=== PATIENT | male | born 1935 | race Caucasian/White ===

== ENCOUNTER 2024-06-27 16:56 | Observation (INO) ==
[2024-06-27 17:43] LABS: Basophils # (auto) 0.07 K/uL (0.00-0.20); Basophils % (auto) 0.5 %; Eosinophils # (auto) 0.02 K/uL (0.00-0.50); Eosinophils % (auto) 0.1 %; Hematocrit (blood only) 37.1 % (42.0-52.0); Immature Granulocytes # (auto) 0.04 K/uL (0.01-0.20); Immature Granulocytes % (auto) 0.3 %; Lymphocytes # (auto) 1.92 K/uL (1.20-3.40); Lymphocytes % (auto) 13.1 %; Mean Corpuscular Hemoglobin 31.1 pg (25.0-34.0); Mean Corpuscular Volume 88.8 fL (80.0-100.0); Mean Platelet Volume 9.3 fL (9.4-12.4); Monocytes # (auto) 1.43 K/uL (0.11-0.59); Monocytes % (auto) 9.8 %; Neutrophils # (auto) 11.17 K/uL (1.40-6.50); Neutrophils % (auto) 76.2 %; Platelet Count 211 K/uL (130-400); RDW Coefficient of Variation 13.4 % (11.5-14.5); RDW Standard Deviation 43.8 fL (36.4-46.3); Red Blood Count 4.18 M/uL (4.70-6.10); White Blood Count 14.65 K/ul (4.8-10.8)
[2024-06-27 18:00] LABS: Alanine Aminotransferase 8 U/L (7-52); Albumin Globulin Ratio 1.4 (0.9-2); Albumin Level 3.8 gm/dl (3.4-5.0); Alkaline Phosphatase 79 U/L (34-104); Anion Gap 6 (3-11); Aspartate Aminotransferase 14 U/L (13-39); BUN Creatinine Ratio 28.6 (10-20); Bilirubin,Total 0.6 mg/dl (0.2-1.0); Blood Urea Nitrogen 36 mg/dl (6-23); Calcium 9.3 mg/dl (8.6-10.3); Carbon Dioxide 26 mmol/L (21-32); Chloride 103 mmol/L (98-107); Globulin 2.7 gm/dl (2.5-4.0); Glucose 249 mg/dl (70-99(Fasting)); Lipase 7 U/L (11-82); Potassium 4.6 mmol/L (3.5-5.1); Sodium 135 mmol/L (136-145); Total Protein 6.5 gm/dl (6.0-8.3)
[2024-06-27 18:04] LABS: Appearance Urine Cloudy (Clear); Bilirubin Urine 1+ (Negative); Blood Urine 3+ (Negative); Color Urine Red; Glucose Urine UA Negative (Negative); Ketones Urine Negative (Negative); Leukocyte Esterase Urine 3+ (Negative); Nitrite Urine Positive (Negative); Protein Urine 3+ (Negative); Urobilinogen Urine Negative (Negative)
[2024-06-27 18:08] LABS: Bacteria Urine 2+ (None Seen); Epithelial Cell Urine 0-2 /hpf (0-2); RBC Urine >20 /hpf (0-2); WBC Urine >50 /hpf (0-5)
--- NOTE | 2024-06-27 18:44 | Emergency Department Note ---
Impression & Plan Acute hemorrhagic cystitis ED Provider Note Provider: Zane Caldwell MD CHIEF COMPLAINT: Urinary pain frequency and blood HISTORY OF PRESENT ILLNESS: Patient is a 88-year-old gentleman past medical history including BPH, diabetes, CVA, GERD, and arthritis presenting here referred from the outpatient setting for blood in urine frequency concern for urinary tract infection. Patient started yesterday afternoon with some blood in the urine worsened overnight. No clots reported by the patient. Urinary frequency and pain with urination. No fevers. Little bit of suprapubic tenderness. No significant flank pain or nausea or vomiting. Did not sleep well as he is been up going to the bathroom frequently. Does not have the best of like to begin with. Went to the office today had urine sample and blood work obtained concerning possible urine infection. Did take 1 dose of Keflex at [address] completed and called back to come to the ER as there was concerns on the CT. Patient has yearly followed with urology and is scheduled to see them next month. No history of urinary tract infections reported. No falls or trauma reported. PAST MEDICAL HISTORY: As noted above MEDICATIONS: Reviewed home medications includes 81 mg aspirin SOCIAL HISTORY: , lives at home PHYSICAL EXAM: GENERAL: alert and oriented in no acute distress on stretcher, at bedside Head: normocephalic and atraumatic, hearing aids in place EYES: No injection, discharge or icterus. NECK: Trachea midline. ENT: Mucous membranes pink and moist. LUNGS: Airway patent. No retractions or tachypnea HEART: Regular rate and rhythm. No chest wall tenderness ABDOMEN: Soft a slight suprapubic tenderness. No guarding. No peritonitis. SKIN: Acyanotic, warm, dry, without rashes EXTREMITIES: Without swelling, tenderness or deformity NEUROLOGICAL: No focal deficits. No aphasia. No facial droop or slurred speech. Patient's laboratory studies and imaging in the outpatient setting reviewed. Differential includes Testicular torsion, mass, infection, hernia, hydrocele, epididymitis, STI, trauma, intra-abdominal process, as well as other pathologies. IMPRESSION/MEDICAL DECISION MAKING: No significant diffuse abdominal tenderness localized to suprapubic area. CT from the outpatient setting reviewed. Evidence of some emphysematous cystitis but no obstructing stone. Blood work here with slight leukocytosis but I do not believe he is septic. Does have some risk factors with his age and diabetes. No history of UTI in the past. Took 1 dose of Keflex just a little bit ago. Does not seem obstructed or having urinary retention. Blood likely from irritation from the infection. Is on low-dose aspirin but no other blood thinners. No findings concerning for significant anemia at this point. Given a dose of cefepime here for broader antimicrobial coverage. Discussed with patient and at length findings. Discussed how he was doing at home and given that he is not sleeping well and having some difficulty getting around with his urinary infection of the blood in the urine and shared decision making he elected for observation overnight to allow for improvement and assistance. DIAGNOSIS: Hemorrhagic cystitis DISPOSITION: Hospitalist will evaluate Patient was agreeable with this plan. Past Med/Surg History Problem List Acute hemorrhagic cystitis (Acute) PVC (premature ventricular contraction) Hyponatremia Macular degeneration BPH (benign prostatic hyperplasia) Diabetes mellitus Elevated PSA Hypertension Nodular prostate with urinary obstruction Hyperlipidemia H/O: CVA (cerebrovascular accident) (2003) Bradycardia Right bundle branch block Bilateral carotid artery disease Osteoarthritis GERD (gastroesophageal reflux disease) Arteriosclerotic heart disease (ASHD) Venous insufficiency of leg Medical History Kidney stone Surgical History H/O endarterectomy (~2006) R S/P cataract surgery 02/2020 Family History Mother Pancreatic cancer Diabetes Hypertension Father Diabetes Coronary heart disease Hypertension Myocardial infarction Grandmother (Maternal) Breast cancer Grandfather (Paternal) Myocardial infarction Denies family history of Ovarian cancer Prostate cancer Social History Smoking Status: Former smoker Tobacco Type: Cigarettes and Smokeless Tobacco (Dip or Chew) Age Started Using Tobacco: 13; Age Quit Using Tobacco: 29; packs per day: 0.25; Cigarettes Per Day: Used to smoke and chew tobacco [id number]; Second Hand Exposure: No; Do You Dip or Chew Tobacco: No; Hx Alcohol Use: No Hx Substance Use: No Preferred Language: Peruvian Communication Ability: Effective Visual Impairment: Partially Limited Hearing Ability: Use of Hearing Aid Palliative Care Nurse Practitioner Required: No Beliefs That Will Affect Care: None marital status: Current Living Situation: Spouse Current Living Situation Comment: [facility]on rueda (Feb 2022) current occupational status: retired current occupation: [employer] How many Children do You have: 1 How many Children do You have Comment: daughter lives in [place] Feels Safe at Home: Yes Safety Concerns: Feels Safe At This Time Diet: regular Diet Comment: regular caffeine: Yes during the past year weight has: remained stable Dental Care, Regularly: No Physical Activity Frequency: Other Physical Activity Frequency Comment: walking; steps at gym at home; limited d/t knee pain Seatbelt Use: always Sunscreen Use: No Assistive Devices: Cane, Denture - Upper, Denture - Lower, Glasses and Hearing Aid - Bilateral Allergies Allergies Allergy/AdvReac Type Severity Reaction Status Date / Time No Known Drug Allergies Allergy Verified 06/27/24 10:47 benzonatate AdvReac Unknown Dizziness Unverified 06/27/24 10:47 [From Ambrosio Claros] Home Meds Home Medications Medication Instructions Recorded Confirmed aspirin 81 mg tablet,delayed 81 mg PO QAM 01/16/19 06/27/24 release (Dejan Low Dose Aspirin) cholecalciferol (vitamin D3) 50 2,000 unit PO QAM 01/16/19 06/27/24 mcg (2,000 unit) tablet (Vitamin D3) glucosamine sulf dipot 1 cap PO BIDM 01/16/19 06/27/24 chlr,msm,chond 550 mg-C 30 mg-sourav 1 mg capsule (Glucosamine Chondroitin) psyllium husk 3.4 gram/5.4 gram 2 tbsp PO QAM 01/16/19 06/27/24 oral powder (Metamucil) acetaminophen 500 mg tablet 1,000 mg PO ONCE PRN pain or fever 04/25/20 06/27/24 (Tylenol Extra Strength) magnesium 250 mg tablet 250 mg PO BID 04/25/20 06/27/24 verapamil 240 mg tablet,extended 240 mg PO HS 01/23/22 06/27/24 release vitamins A,C,U-kjnw-syates 4,296 1 cap PO BID 05/12/22 06/27/24 mcg-226 mg-90 mg capsule (PreserVision AREDS) Previous Rx's Medication Instructions Recorded finasteride 5 mg tablet 5 mg PO QAM #90 tabs 03/14/24 pravastatin 40 mg tablet 40 mg PO HS #90 tabs 04/04/24 torsemide 10 mg tablet 5 mg (1/2 x 10 mg) PO DAILY #30 04/06/24 tabs losartan 100 mg tablet 100 mg PO QAM #90 tabs 05/08/24 cephalexin 500 mg capsule 500 mg PO BID 7 days #14 caps 06/27/24 Results & Data (ED) Vital Signs Vital Signs - 24 hr 06/27/24 17:16 06/27/24 18:28 06/27/24 18:29 Temperature 36.6 C Temperature Source Temporal Artery Scan Pulse Rate 88 83 Pulse Rate [Apical] 82 Respiratory Rate 18 20 Respiratory Effort / Characteristics Non-Labored Spontaneous Non-Labored Spontaneous Respiratory Depth Normal Normal Respiratory Pattern Regular Blood Pressure 151/77 H Blood Pressure [Left Arm] 150/88 H Blood Pressure Mean 101 Blood Pressure Mean [Left Arm] 108 Blood Pressure Position Sitting Blood Pressure Position [Left Arm] Lying Pulse Oximetry 92 96 Oxygen Delivery Method Room Air Room Air Sepsis Recent Fever Within 48 Hours No Sepsis New/Unexplained Change in Mental Status N/A Sepsis Action Taken by Nursing No Action Required 06/27/24 19:00 06/27/24 19:06 Temperature Temperature Source Pulse Rate 82 Pulse Rate [Apical] Respiratory Rate 14 Respiratory Effort / Characteristics Respiratory Depth Respiratory Pattern Blood Pressure 142/61 H Blood Pressure [Left Arm] Blood Pressure Mean 80 Blood Pressure Mean [Left Arm] Blood Pressure Position Blood Pressure Position [Left Arm] Pulse Oximetry Oxygen Delivery Method Sepsis Recent Fever Within 48 Hours Sepsis New/Unexplained Change in Mental Status Sepsis Action Taken by Nursing Laboratory Data 06/27/24 17:21 06/27/24 17:21 Lab Results 06/27/24 Range/Units 17:21 WBC 14.65 H (4.8-10.8) K/ul RBC 4.18 L (4.70-6.10) M/uL Hgb 13.0 L (14.0-18.0) g/dl Hct 37.1 L (42.0-52.0) % MCV 88.8 (80.0-100.0) fL MCH 31.1 (25.0-34.0) pg MCHC 35.0 (32.0-36.0) g/dL RDW Std Deviation 43.8 (36.4-46.3) fL RDW Coeff of Jan 13.4 (11.5-14.5) % Plt Count 211 (130-400) K/uL MPV 9.3 L (9.4-12.4) fL Immature Gran % (Auto) 0.3 % Neut % (Auto) 76.2 % Lymph % (Auto) 13.1 % [place] % (Auto) 9.8 % Eos % (Auto) 0.1 % Baso % (Auto) 0.5 % Neut # (Auto) 11.17 H (1.40-6.50) K/uL Lymph # (Auto) 1.92 (1.20-3.40) K/uL [place] # (Auto) 1.43 H (0.11-0.59) K/uL Eos # (Auto) 0.02 (0.00-0.50) K/uL Baso # (Auto) 0.07 (0.00-0.20) K/uL Immature Gran # (Auto) 0.04 (0.01-0.20) K/uL Sodium 135 L (136-145) mmol/L Potassium 4.6 (3.5-5.1) mmol/L Chloride 103 (98-107) mmol/L Carbon Dioxide 26 (21-32) mmol/L Anion Gap 6 (3-11) BUN 36 H (6-23) mg/dl Creatinine 1.26 (0.6-1.4) mg/dl Est Cr Clr Drug Dosing Not Reportable eGFR 54.52 BUN/Creatinine Ratio 28.6 H (10-20) Glucose 249 H (70-99(Fasting)) mg/dl Calcium 9.3 (8.6-10.3) mg/dl Total Bilirubin 0.6 (0.2-1.0) mg/dl AST 14 (13-39) U/L ALT 8 (7-52) U/L Alkaline Phosphatase 79 (34-104) U/L Total Protein 6.5 (6.0-8.3) gm/dl Albumin 3.8 (3.4-5.0) gm/dl Globulin 2.7 (2.5-4.0) gm/dl Albumin/Globulin Ratio 1.4 (0.9-2) Lipase 7 L (11-82) U/L Administered Medications Sodium Chloride (Nss) 1,000 mls @ 80 mls/hr IV .[id number] TODD Stop: 06/28/24 09:03 Last Admin: 06/27/24 21:36 Dose: 80 mls/hr Documented By: HILDA Insulin Aspart (Insulin Aspart Per Unit Charge) 0 units SC ACHS TODD Stop: 07/27/24 20:59 Last Admin: 06/27/24 21:36 Dose: 4 units Documented By: HILDA Co-signed By: ALLAN Pravastatin Sodium (Pravastatin Sod 40 Mg Tab) 40 mg PO HS [facility] Stop: 07/27/24 20:59 Last Admin: 06/27/24 23:09 Dose: 40 mg Documented By: HILDA Verapamil HCl (Verapamil Hcl 240 Mg Tabcr) 240 mg PO HS [facility] Stop: 07/27/24 20:59 Last Admin: 06/27/24 23:08 Dose: 240 mg Documented By: HILDA Discontinued Medications Cefepime HCl (Maxipime 2000mg) 2,000 mg in 20 mls @ 5 mls/min IV NOW STA; Protocol Stop: 06/27/24 18:42 Last Admin: 06/27/24 18:52 Dose: 5 mls/min Documented By: Discharge Plan Visit Data Chief Complaint: Abnormal Labs/Diagnostic Testing Stated Complaint: ABN TEST RESULTS DOC SENT THEM BACK HERE ED Provider: Zane Caldwell Discharge Problem: Acute hemorrhagic cystitis Patient Disposition: Admitted As Inpatient Discharge Instructions Interventions: ED Discharge Assessment Last Done: 06/27/24 20:04
[2024-06-27] MEDS: CEFEPIME 2000MG 2,000 MG/20 ML SYR IV STA (18:52)
--- NOTE | 2024-06-27 19:28 | History & Physical Report ---
Date of Service June 27, 2024 Assessment & Plan (1) Acute hemorrhagic cystitis: Plan: 88yo male presenting with hematuria, dysuria, increased urinary frequency and urgency x 1 day. Patient is afebrile, HD stable. Workup thus far suggestive of emphesematous UTI with acute hemorrhagic cystitis. Patient does not frequently get UTIs. He reports no difficulty emptying his bladder. -observation to medical -follow urine culture -monitor strict intake/output -bladder scan with straight cath as needed -Ceftriaxone 2gm IV daily -Tylenol PRN pain or fever (2) Diabetes mellitus: Plan: Patient was recently taken off his Metformin due to improvement in his blood sugars. Elevated today at 249 likely in part due to underlying infection. -ISS, goal blood sugar 110 - 140 (3) BPH (benign prostatic hyperplasia): Plan: Chronic. Patient reports minimal urinary complaints at baseline. CT imaging as above suggestive of chronic FLORENCE -Monitor I/Os -Bladder scan and straight cath as needed -Continue Finasteride (4) Hypertension: Plan: Blood pressure elevated today -Continue Losartan 100mg po qAM -Continue Verapamil 240mg po qHS -Holding Torsemide for now (5) Hyperlipidemia: Plan: Chronic. Stable -Continue Pravastatin Admission and Anticipated Discharge Date Admission Date: F/E/N - NSS at 80mL/hr x 1L, electrolytes WNL, Regular diet as tolerated Ppx - SCDs to bilateral LE Code - DNR/DNI per discussion with patient Dispo - Observation to medical History of Present Illness Chief Complaint: Hematuria Primary Care Provider: Sharyn Cintron DO Jim Jones is a pleasant male with history of diabetes, hypertension, hyperlipidemia and BPH presenting with 1 day of hematuria as well as dysuria increased urinary frequency and urgency. Symptoms began yesterday afternoon. Patient noted a considerable amount of blood in the urine. He denies fever, chills, pain in the suprapubic area, back or flanks. He denies nausea, vomiting, chest pain, cough, shortness of breath. No additional complaints at this time. Patient was seen by his PCP this morning for these complaints. A UA was unable to be performed due to the presence of blood. Patient was prescribed Keflex 500 mg p.o. twice daily. A CT of the abdomen performed which revealed prostamegaly with evidence of chronic bladder outlet obstruction as well as emphysematous cystitis with air and layering debris within the urinary bladder volume. There was no renal or ureteral calculi, hydronephrosis or upper urothelial lesions. In the ER patient afebrile, mildly hypertensive otherwise stable. No complaints ER Course: Cefepime Allergies Allergy/AdvReac Type Severity Reaction Status Date / Time No Known Drug Allergies Allergy Verified 06/27/24 10:47 benzonatate AdvReac Unknown Dizziness Unverified 06/27/24 10:47 [From Ambrosio Claros] Home Medications Medication Instructions Recorded Confirmed Type aspirin 81 mg tablet,delayed 81 mg PO QAM 01/16/19 06/27/24 History release (Dejan Low Dose Aspirin) cholecalciferol (vitamin D3) 50 2,000 unit PO QAM 01/16/19 06/27/24 History mcg (2,000 unit) tablet (Vitamin D3) glucosamine sulf dipot 1 cap PO BIDM 01/16/19 06/27/24 History chlr,msm,chond 550 mg-C 30 mg-sourav 1 mg capsule (Glucosamine Chondroitin) psyllium husk 3.4 gram/5.4 gram 2 tbsp PO QAM 01/16/19 06/27/24 History oral powder (Metamucil) acetaminophen 500 mg tablet 1,000 mg PO ONCE PRN pain or fever 04/25/20 06/27/24 History (Tylenol Extra Strength) magnesium 250 mg tablet 250 mg PO BID 04/25/20 06/27/24 History verapamil 240 mg tablet,extended 240 mg PO HS 01/23/22 06/27/24 History release vitamins A,C,Q-krvh-ywtbhd 4,296 1 cap PO BID 05/12/22 06/27/24 History mcg-226 mg-90 mg capsule (PreserVision AREDS) finasteride 5 mg tablet 5 mg PO QAM #90 tabs 03/14/24 06/27/24 Rx pravastatin 40 mg tablet 40 mg PO HS #90 tabs 04/04/24 06/27/24 Rx torsemide 10 mg tablet 5 mg (1/2 x 10 mg) PO DAILY #30 04/06/24 06/27/24 Rx tabs losartan 100 mg tablet 100 mg PO QAM #90 tabs 05/08/24 06/27/24 Rx cephalexin 500 mg capsule 500 mg PO BID 7 days #14 caps 06/27/24 06/27/24 Rx Past Med/Surg History Problem List Acute hemorrhagic cystitis (Acute) PVC (premature ventricular contraction) Hyponatremia Macular degeneration BPH (benign prostatic hyperplasia) Diabetes mellitus Elevated PSA Hypertension Nodular prostate with urinary obstruction Hyperlipidemia H/O: CVA (cerebrovascular accident) (2003) Bradycardia Right bundle branch block Bilateral carotid artery disease Osteoarthritis GERD (gastroesophageal reflux disease) Arteriosclerotic heart disease (ASHD) Venous insufficiency of leg Medical History Kidney stone Surgical History H/O endarterectomy (~2006) R S/P cataract surgery 02/2020 Family History Mother Pancreatic cancer Diabetes Hypertension Father Diabetes Coronary heart disease Hypertension Myocardial infarction Grandmother (Maternal) Breast cancer Grandfather (Paternal) Myocardial infarction Denies family history of Ovarian cancer Prostate cancer Social History Smoking Status: Former smoker Tobacco Type: Cigarettes and Smokeless Tobacco (Dip or Chew) Age Started Using Tobacco: 13; Age Quit Using Tobacco: 29; packs per day: 0.25; Cigarettes Per Day: Used to smoke and chew tobacco [id number]; Second Hand Exposure: No; Do You Dip or Chew Tobacco: No; Hx Alcohol Use: No Hx Substance Use: No Preferred Language: Armenian Communication Ability: Effective Visual Impairment: Partially Limited Hearing Ability: Use of Hearing Aid 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 Beliefs That Will Affect Care: None marital status: Current Living Situation: Spouse Current Living Situation Comment: baron rueda (Feb 2022) current occupational status: retired current occupation: [employer] How many Children do You have: 1 How many Children do You have Comment: daughter lives in [place] Feels Safe at Home: Yes Safety Concerns: Feels Safe At This Time Diet: regular Diet Comment: regular caffeine: Yes during the past year weight has: remained stable Dental Care, Regularly: No Physical Activity Frequency: Other Physical Activity Frequency Comment: walking; steps at gym at home; limited d/t knee pain Seatbelt Use: always Sunscreen Use: No Assistive Devices: Cane, Denture - Upper, Denture - Lower, Glasses and Hearing Aid - Bilateral Review of Systems Review of Systems: All systems reviewed & are unremarkable except as noted in HPI & below Physical Exam Physical Exam: General: patient resting comfortably, NAD, non-toxic in appearance, AA&O x 4 Skin: warm, dry, intact, no rashes or lesions HEENT: NC/AT, PERRL, EOMI, anicteric sclera, conjunctiva without injection, external ear normal to inspection and nontender, nares patent, moist mucus membranes, dentition intact, no oropharyngeal lesions, neck supple, trachea midline, no LAD, no thyromegaly, no JVD Heart: +S1/S2, regular, no m/r/g Lungs: equal air entry bilaterally, no rales/rhonchi/wheezes Abd: +BS, soft, NT/ND, no masses/organomegaly/ascites Ext: warm, 2+ pulses in UE/LE bilaterally, no clubbing/cyanosis or edema Neuro: nonfocal, patient AA&O x 4, speech intact, no facial droop, moving all extremities on command with equal strength 5/5 Results & Data Results & Data Vital Signs (Past 12 Hours) Vital Signs Temp Pulse Pulse Resp BP BP Pulse Ox 06/27/24 18:29 83 06/27/24 18:28 82 20 150/88 H 96 06/27/24 17:16 36.6 C 88 18 151/77 H 92 O2 Del Method 06/27/24 18:29 06/27/24 18:28 Room Air 06/27/24 17:16 Room Air Laboratory Results Laboratory Results WBC 14.65 K/ul (4.8-10.8) H 06/27/24 17:21 RBC 4.18 M/uL (4.70-6.10) L 06/27/24 17:21 Hgb 13.0 g/dl (14.0-18.0) L 06/27/24 17:21 Hct 37.1 % (42.0-52.0) L 06/27/24 17:21 MCV 88.8 fL (80.0-100.0) 06/27/24 17:21 MCH 31.1 pg (25.0-34.0) 06/27/24 17:21 MCHC 35.0 g/dL (32.0-36.0) 06/27/24 17:21 RDW Std Deviation 43.8 fL (36.4-46.3) 06/27/24 17: RDW Coeff of Jan 13.4 % (11.5-14.5) 06/27/24 17:21 Plt Count 211 K/uL (130-400) 06/27/24 17:21 MPV 9.3 fL (9.4-12.4) L 06/27/24 17:21 Immature Gran % (Auto) 0.3 % 06/27/24 17:21 Neut % (Auto) 76.2 % 06/27/24 17:21 Lymph % (Auto) 13.1 % 06/27/24 17:21 [place] % (Auto) 9.8 % 06/27/24 17:21 Eos % (Auto) 0.1 % 06/27/24 17:21 Baso % (Auto) 0.5 % 06/27/24 17:21 Neut # (Auto) 11.17 K/uL (1.40-6.50) H 06/27/24 17:21 Lymph # (Auto) 1.92 K/uL (1.20-3.40) 06/27/24 17:21 [place] # (Auto) 1.43 K/uL (0.11-0.59) H 06/27/24 17:21 Eos # (Auto) 0.02 K/uL (0.00-0.50) 06/27/24 17:21 Baso # (Auto) 0.07 K/uL (0.00-0.20) 06/27/24 17:21 Immature Gran # (Auto) 0.04 K/uL (0.01-0.20) 06/27/24 17:21 Sodium 135 mmol/L (136-145) L 06/27/24 17:21 Potassium 4.6 mmol/L (3.5-5.1) 06/27/24 17:21 Chloride 103 mmol/L (98-107) 06/27/24 17:21 Carbon Dioxide 26 mmol/L (21-32) 06/27/24 17:21 Anion Gap 6 (3-11) 06/27/24 17:21 BUN 36 mg/dl (6-23) H 06/27/24 17:21 Creatinine 1.26 mg/dl (0.6-1.4) 06/27/24 17:21 Est Cr Clr Drug Dosing Not Reportable 06/27/24 17:21 eGFR 54.52 06/27/24 17:21 BUN/Creatinine Ratio 28.6 (10-20) H 06/27/24 17:21 Glucose 249 mg/dl (70-99(Fasting)) H 06/27/24 17:21 POC Glucose 274 mg/dl (70-99) H 06/27/24 20:34 Calcium 9.3 mg/dl (8.6-10.3) 06/27/24 17:21 Total Bilirubin 0.6 mg/dl (0.2-1.0) 06/27/24 17:21 AST 14 U/L (13-39) 06/27/24 17:21 ALT 8 U/L (7-52) 06/27/24 17:21 Alkaline Phosphatase 79 U/L (34-104) 06/27/24 17:21 Total Protein 6.5 gm/dl (6.0-8.3) 06/27/24 17:21 Albumin 3.8 gm/dl (3.4-5.0) 06/27/24 17:21 Globulin 2.7 gm/dl (2.5-4.0) 06/27/24 17:21 Albumin/Globulin Ratio 1.4 (0.9-2) 06/27/24 17:21 Lipase 7 U/L (11-82) L 06/27/24 17:21 Urine Color Red 06/27/24 Unknown Urine Appearance Cloudy (Clear) A 06/27/24 Unknown Urine pH 6.0 (4.5-7.5) 06/27/24 Unknown Ur Specific [place] 1.020 (1.000-1.030) 06/27/24 Unknown Urine Protein 3+ (Negative) H 06/27/24 Unknown Urine Glucose (UA) Negative (Negative) 06/27/24 Unknown Urine Ketones Negative (Negative) 06/27/24 Unknown Urine Blood 3+ (Negative) H 06/27/24 Unknown Urine Nitrite Positive (Negative) A 06/27/24 Unknown Urine Bilirubin 1+ (Negative) H 06/27/24 Unknown Urine Urobilinogen Negative (Negative) 06/27/24 Unknown Ur Leukocyte Esterase 3+ (Negative) H 06/27/24 Unknown Urine RBC >20 /hpf (0-2) H 06/27/24 Unknown Urine WBC >50 /hpf (0-5) H 06/27/24 Unknown Ur Epithelial Cells 0-2 /hpf (0-2) 06/27/24 Unknown Urine Bacteria 2+ (None Seen) H 06/27/24 Unknown Diagnostic Findings [place], [place] [phone] CT Scan Report Patient: JIM JONES Admit Date: 06/27/24 MR#: [id number] Address1: [address] [place] [address] Acct ID:[id number] Address2: [id number] Date: 1935 [facility] Zip: [place] [address] Age: 88 Location: CT Sex: M Room/Bed: Att Phy: Hortensia Stallworth PA-C Diagnosis: R39.9,R31.9,R39.11 Sania Phy: Sharyn Cintron DO Service Date: 06/27/24 Fam Phy: Interpreting Phy: Coleman RobAdmit Phy: Ordering Phy: Hortensia Stallworth PA-C cc: ~ CT abdomen pelvis wo/w con HISTORY: 88 years-old Male R31.9 - Hematuria, unspecified COMPARISON: CT abdomen and pelvis 01/16/2019 TECHNIQUE: CT abdomen and pelvis with and without IV contrast was obtained according to hematuria protocol with delayed postcontrast images. A dose lowering technique was used consistent with the principals of SOCORRO. FINDINGS: Moderate to extensive coronary artery calcifications. Clear lung bases. Study is mildly degraded by respiratory motion. No pneumatosis or pneumoperitoneum. Unremarkable spleen with scattered calcifications. Moderately atrophic pancreas. Unremarkable adrenal glands and gallbladder. Hepatic steatosis with mild hepatomegaly. Patency of the hepatic and portal veins. Mild cortical thinning of the kidneys. Bilateral perinephric stranding. No renal or ureteral calculi or hydronephrosis. No enhancing renal mass lesion. No other urothelial lesion identified. Prostatomegaly. There is a large amount of intraluminal air within the urinary bladder with air-fluid level. Additionally, there is air circumferential throughout the urinary bladder wall extending into the urinary bladder diverticula. Wall thickening with reticulation and perivesicular stranding also noted. No discrete urinary bladder mass identified. Layering debris within the urinary bladder lumen. Atherosclerosis of the aorta without aneurysm. No lymphadenopathy. No bowel obstruction or bowel wall thickening. Colonic diverticulosis without acute diverticulitis. Normal appendix. No acute fracture. No destructive bone lesions. IMPRESSION: 1. Prostamegaly with evidence of chronic outlet obstruction. Additionally, there is emphysematous cystitis with air and layering debris within the urinary bladder lumen. 2. No renal or ureteral calculi, hydronephrosis or upper urothelial lesion. 3. Colonic diverticulosis without acute diverticulitis. 4. Additional findings as above. ACT 112: Negative or not required by law. The above report was generated using voice recognition software. It may contain grammatical, syntax or spelling errors. Electronically signed by: Coleman Rob M.D. 06/27/2024 2:22 PM Dictated: 06/27/24 1402 Transcribed: 06/27/24 1402 Code Status & VTE Plan VTE Prophylaxis Plan VTE Prophylaxis will be ordered: Yes PG Care Time/CCT Total # of Minutes Spent Total Time Spent with Patient: Total time spent is greater than 50% in coordination of care (as documented) at patient's floor/unit and/or counseling patient: Coding Level of Care Code 18347 INT INP/OBS CARE 3/75MIN Diagnoses Acute hemorrhagic cystitis N30.01 Diabetes mellitus E11.9 BPH (benign prostatic hyperplasia) N40.0 Hypertension I10 Hyperlipidemia E78.5
[2024-06-27] MEDS ORDERED: POLYETHYLENE (MIRALAX) 17 GM PACK PO PRN (20:34)
[2024-06-27] MEDS ORDERED: GLUCOSE 40% GEL 15 GM TUBE PO PRN (20:34)
[2024-06-27] MEDS ORDERED: ONDANSETRON INJ 2 MG/ML 2 ML VIAL IV PRN (20:34)
[2024-06-27] MEDS ORDERED: ACETAMINOPHEN 325 MG TAB PO PRN (20:34)
[2024-06-27] MEDS ORDERED: CARBOHYDRATES FOR HYPOGLYCEMIA PO PRN (20:34)
[2024-06-27] MEDS ORDERED: GLUCAGON FOR INJ 1 MG VIAL SQ PRN (20:34)
[2024-06-27] MEDS ORDERED: DEXTROSE 50% 50 ML SYRINGE IV PRN (20:34)
[2024-06-27] MEDS ORDERED: DOCUSATE SODIUM 100 MG CAP PO PRN (20:34)
[2024-06-27] MEDS ORDERED: GLUCOSE 10 TAB/TUBE PO PRN (20:34)
[2024-06-27] MEDS: SODIUM CHLORIDE 0.9% 1,000 ML IV SCH (21:36)
[2024-06-27] MEDS: INSULIN ASPART PER UNIT CHARGE SC SCH (21:36)
[2024-06-27] MEDS: VERAPAMIL HCL 240 MG TABCR PO SCH (23:08)
[2024-06-27] MEDS: PRAVASTATIN SOD 40 MG TAB PO SCH (23:09)
[2024-06-28] MEDS: cefTRIAXone SODIUM 2,000 MG/50 ML BAG IV SCH (01:51)
[2024-06-28 07:36] LABS: Hemoglobin 11.2 g/dl (14.0-18.0); Mean Corpuscular Hemoglobin 31.1 pg (25.0-34.0); Mean Corpuscular Hgb Conc 33.9 g/dL (32.0-36.0); Mean Corpuscular Volume 91.7 fL (80.0-100.0); Mean Platelet Volume 9.4 fL (9.4-12.4); Platelet Count 192 K/uL (130-400); RDW Coefficient of Variation 13.6 % (11.5-14.5); RDW Standard Deviation 46.1 fL (36.4-46.3); White Blood Count 11.15 K/ul (4.8-10.8)
[2024-06-28 07:56] LABS: Anion Gap 4 (3-11); BUN Creatinine Ratio 32.2 (10-20); Blood Urea Nitrogen 39 mg/dl (6-23); Calcium 8.9 mg/dl (8.6-10.3); Carbon Dioxide 29 mmol/L (21-32); Chloride 107 mmol/L (98-107); Glucose 147 mg/dl (70-99(Fasting)); Potassium 4.7 mmol/L (3.5-5.1); Sodium 140 mmol/L (136-145)
--- NOTE | 2024-06-28 08:43 | Hospitalist Progress Note ---
Date of Service June 28, 2024 Assessment & Plan (1) Acute hemorrhagic cystitis: Plan: 88yo male presenting with hematuria, dysuria, increased urinary frequency and urgency x 1 day. Patient is afebrile, HD stable. Workup thus far suggestive of emphysematous UTI with acute hemorrhagic cystitis. Patient does not frequently get UTIs. He reports no difficulty emptying his bladder, bladder scan 0cc Obs medical Given Cefepime IV x 1 in ER, continued on Ceftriaxone 2gm IV daily (dose this morning 2am) WBC improving, 14.6k --> 11.1k Urine cx pending -- ecoli on preliminary - monitor final/sensitivites (noting did take 1 dose keflex prior to admission) NS @80cc x 1 L, cautious w/ hx lymphedema/torsemide use (ECHO jul 17 w/ EF 55- 60, mild TR) Urology consulted, recs for armas placement. will need continued at dc. On proscar, ?flomax - defer to urology Monitor labs/exam in AM (2) Diabetes mellitus: Plan: Patient was recently taken off his Metformin due to improvement in his blood sugars. Glu 249 on admission, suspected 2nd to infection above BSG AC/HS, SSI while inpatient w/ POC 151 most recently ( reports having 120s typically at home since off metformin) Monitor/adjustment to sliding scale as needed (3) BPH (benign prostatic hyperplasia): Plan: Chronic. CT imaging as above suggestive of chronic FLORENCE, on proscar at baseline Urology consulted/armas to be placed as above and will monitor I&O Urology f/u for abve (4) Hypertension: Plan: BP 160/69 Continues on losartan 100mg, verapamil 240mg Torsemide 5mg PO daily on HOLD/IVF as above and likely able to resume in AM 2/6 (5) Hyperlipidemia: Plan: Chronic. Stable -Continue Pravastatin Plan DVT: SCDs ordered, RN to place. Avoiding chemoproph w/ hematuria at this time. 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 Hopeful dc /. Will consult PT while inpatient. Admission and Anticipated Discharge Date Admission Date: June 27, 2024 Supervising Physician Co-Signing Physician Notes The patient was not seen by me. The chart was reviewed. Case discussed with LORRAINE Recinos. 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 They will arrange outpt f/u Discussed w/ patient about continuing armas at dc, monitoring urine cx and hopeful dc in AM. He was hopeful for today but understands/agreeable to tomorrow. No CP/SOB. Chronic lymphedema, uses pumps at home/diuretics. Discussed cap 1L IVF, 93% on RA and no further IVF at this time/monitor for torsemide resumption in AM. Updated in lobby, discussed plan. Patient did take 1 dose keflex prior to coming in. 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 Discussed plan. Physical Exam 2 Physical Exam: General: 88yo male resting in bed, NAD, nursing students in room HEENT: head atraumatic, normocephalic, mmm, trachea midline Resp; even/unlabored, no significant wheezing/rales, 93% on RA CV: RRR, no significant m/r/g, chronic lymphedema/1-2+, no calf tenderness GI: +BS, soft/NT : no armas (to have one placed shortly) MSK/Neuro: nonfocal, not confused, moves all extremities, no facial droop Psych: AOx3, cooperative with exam Results & Data Results & Data Vital Signs (Past 12 Hours) Vital Signs Temp Pulse Resp BP Pulse Ox O2 Del Method 06/28/24 07:52 36.8 C 60 18 138/68 93 Room Air 06/27/24 23:08 74 19 148/77 H Laboratory Results 06/28/24 07:16 06/28/24 07:[address] abdomen pelvis wo/w con HISTORY: 88 years-old Male R31.9 - Hematuria, unspecified COMPARISON: CT abdomen and pelvis 01/16/2019 TECHNIQUE: CT abdomen and pelvis with and without IV contrast was obtained according to hematuria protocol with delayed postcontrast images. A dose lowering technique was used consistent with the principals of SOCORRO. FINDINGS: Moderate to extensive coronary artery calcifications. Clear lung bases. Study is mildly degraded by respiratory motion. No pneumatosis or pneumoperitoneum. Unremarkable spleen with scattered calcifications. Moderately atrophic pancreas. Unremarkable adrenal glands and gallbladder. Hepatic steatosis with mild hepatomegaly. Patency of the hepatic and portal veins. Mild cortical thinning of the kidneys. Bilateral perinephric stranding. No renal or ureteral calculi or hydronephrosis. No enhancing renal mass lesion. No other urothelial lesion identified. Prostatomegaly. There is a large amount of intraluminal air within the urinary bladder with air-fluid level. Additionally, there is air circumferential throughout the urinary bladder wall extending into the urinary bladder diverticula. Wall thickening with reticulation and perivesicular stranding also noted. No discrete urinary bladder mass identified. Layering debris within the urinary bladder lumen. Atherosclerosis of the aorta without aneurysm. No lymphadenopathy. No bowel obstruction or bowel wall thickening. Colonic diverticulosis without acute diverticulitis. Normal appendix. No acute fracture. No destructive bone lesions. IMPRESSION: 1. Prostamegaly with evidence of chronic outlet obstruction. Additionally, there is emphysematous cystitis with air and layering debris within the urinary bladder lumen. 2. No renal or ureteral calculi, hydronephrosis or upper urothelial lesion. 3. Colonic diverticulosis without acute diverticulitis. 4. Additional findings as above. ACT 112: Negative or not required by law. The above report was generated using voice recognition software. It may contain grammatical, syntax or spelling errors. Electronically signed by: Coleman Rob M.D. 06/27/2024 2:22 PM Dictated: 06/27/24 1402 Transcribed: 06/27/24 1402 PG Care Time/CCT Total # of Minutes Spent Total Time Spent with Patient: Total time spent is greater than 50% in coordination of care (as documented) at patient's floor/unit and/or counseling patient: Coding Level of Care Code 34331 SUB INP/OBS CARE 3/50MIN Diagnoses Acute hemorrhagic cystitis N30.01 Diabetes mellitus E11.9 BPH (benign prostatic hyperplasia) N40.0 Hypertension I10 Hyperlipidemia E78.5
[2024-06-28] MEDS: LOSARTAN POTASSIUM 50 MG TAB PO SCH (08:58)
[2024-06-28] MEDS: FINASTERIDE 5 MG TAB PO SCH (08:58)
[2024-06-28] MEDS ORDERED: TORSEMIDE 10 MG TAB PO SCH (09:00)
--- NOTE | 2024-06-28 10:50 | Urology Consultation ---
Date of Consultation June 28, 2024 Assessment & Plan (1) Emphysematous cystitis: 88-year-old male admitted for emphysematous cystitis and hematuria. Patient is afebrile and hemodynamically stable Labs reviewedcreatinine 1.21, WBC 11.15, hemoglobin 11.2 Urine culture prelim with E. coli CT A/P reviewed and consistent with emphysematous cystitis Recommend placement of Gabriel catheter now for management of emphysematous cystitisorder placed Continue with broad-spectrum IV antibiotics and narrow per sensitivity data when available Do not recommend checking a PSA in the setting of acute infection Continue supportive care and medical management per hospital medicine service Will arrange outpatient follow-up with our service will follow, please contact our service with any questions/concerns or changes in status History of Present Illness Reason for Consultation: hematuria, follows w/ group, hx BPH/outlet obstruction Attending Physician: Lance Todd MD History of Present Illness This is an 88-year-old male who follows with urology for BPH, elevated PSA and nodular prostate with urinary obstruction. He was evaluated by PCP on 06/27/2024 for hematuria, urinary frequency and difficulty voiding. He was started on cephalexin and ordered to have CT urogram and labs. He was referred to the emergency department by his PCP due to CT findings of emphysematous cystitis. On arrival to ED, he was afebrile, hypertensive. Labs showed WBC 14.65, hemoglobin 13.0, creatinine 1.26, sodium 135. ED course: IV fluids and cefepime. He was admitted to the hospital medicine service for emphysematous cystitis. CT abdomen pelvis without and with contrast on 06/27/2024 reviewed and notable for prostatomegaly with evidence of chronic bladder outlet obstruction. No hydronephrosis. There is a large amount of intraluminal air within the urinary bladder with air-fluid level as well as air circumferential throughout the urinary bladder wall extending into the urinary bladder diverticula. Bladder wall thickening and perivesicular stranding noted. Layering debris within the bladder lumen. Patient seen and examined at bedside. He is awake and resting in bed. Denies suprapubic or flank pain. No fever or chills. He is voiding spontaneously at present. Reports some improvement with hematuria. Denies clots. Continues with urinary frequency. Documented bladder scans have been 0 mL. Allergies Allergy/AdvReac Type Severity Reaction Status Date / Time No Known Drug Allergies Allergy Verified 06/27/24 10:47 benzonatate AdvReac Unknown Dizziness Unverified 06/27/24 10:47 [From Ambrosio Claros] Home Medications Medication Instructions Recorded Confirmed Type aspirin 81 mg tablet,delayed 81 mg PO QAM 01/16/19 06/27/24 History release (Dejan Low Dose Aspirin) cholecalciferol (vitamin D3) 50 2,000 unit PO QAM 01/16/19 06/27/24 History mcg (2,000 unit) tablet (Vitamin D3) glucosamine sulf dipot 1 cap PO BIDM 01/16/19 06/27/24 History chlr,msm,chond 550 mg-C 30 mg-sourav 1 mg capsule (Glucosamine Chondroitin) psyllium husk 3.4 gram/5.4 gram 2 tbsp PO QAM 01/16/19 06/27/24 History oral powder (Metamucil) acetaminophen 500 mg tablet 1,000 mg PO ONCE PRN pain or fever 04/25/20 06/27/24 History (Tylenol Extra Strength) magnesium 250 mg tablet 250 mg PO BID 04/25/20 06/27/24 History verapamil 240 mg tablet,extended 240 mg PO HS 01/23/22 06/27/24 History release vitamins A,C,K-huep-zrzlyw 4,296 1 cap PO BID 05/12/22 06/27/24 History mcg-226 mg-90 mg capsule (PreserVision AREDS) finasteride 5 mg tablet 5 mg PO QAM #90 tabs 03/14/24 06/27/24 Rx pravastatin 40 mg tablet 40 mg PO HS #90 tabs 04/04/24 06/27/24 Rx torsemide 10 mg tablet 5 mg (1/2 x 10 mg) PO DAILY #30 04/06/24 06/27/24 Rx tabs losartan 100 mg tablet 100 mg PO QAM #90 tabs 05/08/24 06/27/24 Rx cephalexin 500 mg capsule 500 mg PO BID 7 days #14 caps 06/27/24 06/27/24 Rx Patient History Medical History Kidney stone Surgical History H/O endarterectomy (~2006) R S/P cataract surgery 02/2020 Family History Mother Pancreatic cancer Diabetes Hypertension Father Diabetes Coronary heart disease Hypertension Myocardial infarction Grandmother (Maternal) Breast cancer Grandfather (Paternal) Myocardial infarction Denies family history of Ovarian cancer Prostate cancer Social History Smoking Status: Former smoker Tobacco Type: Cigarettes and Smokeless Tobacco (Dip or Chew) Age Started Using Tobacco: 13; Age Quit Using Tobacco: 29; packs per day: 0.25; Cigarettes Per Day: Used to smoke and chew tobacco [id number]; Second Hand Exposure: No; Do You Dip or Chew Tobacco: No; Hx Alcohol Use: No Hx Substance Use: No Preferred Language: Greek Communication Ability: Effective Visual Impairment: Partially Limited Hearing Ability: Use of Hearing Aid Cost Recovery Technician Required: No Beliefs That Will Affect Care: None marital status: Current Living Situation: Spouse Current Living Situation Comment: baron rueda (Feb 2022) current occupational status: retired current occupation: [employer] How many Children do You have: 1 How many Children do You have Comment: daughter lives in [place] Feels Safe at Home: Yes Safety Concerns: Feels Safe At This Time Diet: regular Diet Comment: regular caffeine: Yes during the past year weight has: remained stable Dental Care, Regularly: No Physical Activity Frequency: Other Physical Activity Frequency Comment: walking; steps at gym at home; limited d/t knee pain Seatbelt Use: always Sunscreen Use: No Assistive Devices: Cane, Denture - Upper, Denture - Lower, Glasses and Hearing Aid - Bilateral Review of Systems Review of Systems: All systems reviewed & are unremarkable except as noted in HPI & below Physical Exam Constitutional: well developed and well nourished; no acute distress Respiratory: normal respiratory effort; no respiratory distress and no labored breathing Gastrointestinal (Abdomen): Inspection/Auscultation: abdomen normal to inspection Musculoskeletal: Head/Neck/Chest: normocephalic Neurologic: moves all extremities and awake Psychiatric: Orientation: alert and oriented x 3 Results & Data Vital Signs (Past 12 Hours) Vital Signs Temp Pulse Resp BP Pulse Ox O2 Del Method 06/28/24 08:56 75 160/69 H 06/28/24 07:52 36.8 C 60 18 138/68 93 Room Air 06/27/24 23:08 74 19 148/77 H PG Care Time/CCT Total # of Minutes Spent Total Time Spent with Patient: Total time spent is greater than 50% in coordination of care (as documented) at patient's floor/unit and/or counseling patient: Coding Level of Care Code 34671 INT INP/OBS CARE 3/75MIN Diagnoses Emphysematous cystitis N30.80
[2024-06-28 14:23] VITALS: RESP 16
[2024-06-28 19:41] VITALS: TEMP 98.2
[2024-06-29] MEDS ORDERED: CIPROFLOXACIN 250 MG TAB PO SCH
[2024-06-29 06:36] VITALS: O2SAT 92
[2024-06-29 07:58] LABS: Hematocrit (blood only) 31.4 % (42.0-52.0); Hemoglobin 10.7 g/dl (14.0-18.0); Mean Corpuscular Hemoglobin 31.2 pg (25.0-34.0); Mean Corpuscular Hgb Conc 34.1 g/dL (32.0-36.0); Mean Corpuscular Volume 91.5 fL (80.0-100.0); Mean Platelet Volume 9.7 fL (9.4-12.4); Platelet Count 187 K/uL (130-400); RDW Coefficient of Variation 13.6 % (11.5-14.5); RDW Standard Deviation 45.9 fL (36.4-46.3); Red Blood Count 3.43 M/uL (4.70-6.10); White Blood Count 9.55 K/ul (4.8-10.8)
[2024-06-29 08:25] VITALS: BP 154/69; PULSE 69
[2024-06-29 08:25] LABS: Anion Gap 6 (3-11); BUN Creatinine Ratio 29.1 (10-20); Blood Urea Nitrogen 34 mg/dl (6-23); Calcium 8.4 mg/dl (8.6-10.3); Carbon Dioxide 25 mmol/L (21-32); Chloride 105 mmol/L (98-107); Glucose 121 mg/dl (70-99(Fasting)); Magnesium 2.2 mg/dl (1.7-2.4); Potassium 4.3 mmol/L (3.5-5.1); Sodium 136 mmol/L (136-145)
--- NOTE | 2024-06-29 08:46 | Hospitalist Progress Note ---
Date of Service June 29, 2024 Assessment & Plan (1) Acute hemorrhagic cystitis: Plan: 88yo male presenting with hematuria, dysuria, increased urinary frequency and urgency x 1 day. Patient is afebrile, HD stable. Workup thus far suggestive of emphysematous UTI with acute hemorrhagic cystitis. Patient does not frequently get UTIs. He reports no difficulty emptying his bladder, bladder scan 0cc Obs medical Given Cefepime IV x 1 in ER, continued on Ceftriaxone 2gm IV daily (dose this morning 2am) WBC improving, 14.6k --> 11.1k Urine cx pending -- ecoli on preliminary - monitor final/sensitivites (noting did take 1 dose keflex prior to admission) NS @80cc x 1 L, cautious w/ hx lymphedema/torsemide use (ECHO jul 17 w/ EF 55- 60, mild TR) Urology consulted, recs for armas placement. will need continued at dc. On proscar, ?flomax - defer to urology Monitor labs/exam in AM 2/6 -- Ceftriaxone IV continued. -- WBC normalized, 9.5k -- Hgb 11.2--> 10.7, however was given 1L NSS and suspect some aspect of dilution. BUN/Cr improved 34/1.17. Home torsemide 5mg PO daily on hold/monitor to resume -- Armas placed, per urology to remain in place and will plan for repeat imaging 2-3 weeks to ensure improvement prior to removal. Urine cx pansensitive e.coli, will plan to transition to PO at dc to complete course -- PT/OT consults pending, possible dc today (2) Diabetes mellitus: Plan: Patient was recently taken off his Metformin due to improvement in his blood sugars. Glu 249 on admission, suspected 2nd to infection above BSG AC/HS, SSI while inpatient w/ POC 151 most recently ( reports having 120s typically at home since off metformin) Monitor/adjustment to sliding scale as needed (3) BPH (benign prostatic hyperplasia): Plan: Chronic. CT imaging as above suggestive of chronic FLORENCE, on proscar at baseline Urology consulted/armas to be placed as above and will monitor I&O Urology f/u for abve (4) Hypertension: Plan: BP 160/69 Continues on losartan 100mg, verapamil 240mg Torsemide 5mg PO daily on HOLD/IVF as above and likely able to resume in AM 06/29 (5) Hyperlipidemia: Plan: Chronic. Stable -Continue Pravastatin Plan DVT: SCDs ordered, RN to place. Avoiding chemoproph w/ hematuria at this time. 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 Hopeful dc 06/29. Will consult PT while inpatient. Admission and Anticipated Discharge Date Admission Date: June 27, 2024 Results & Data Results & Data Vital Signs (Past 12 Hours) Vital Signs Temp Pulse Resp BP Pulse Ox O2 Del Method 06/29/24 08:25 69 16 154/69 H 06/29/24 06:35 36.8 C 65 16 107/64 92 Room Air Laboratory Results 06/29/24 07:05 06/29/24 07:05 PG Care Time/CCT Total # of Minutes Spent Total Time Spent with Patient: Total time spent is greater than 50% in coordination of care (as documented) at patient's floor/unit and/or counseling patient: Coding Diagnoses Acute hemorrhagic cystitis N30.01 Diabetes mellitus E11.9 BPH (benign prostatic hyperplasia) N40.0 Hypertension I10 Hyperlipidemia E78.5
--- NOTE | 2024-06-29 09:22 | Urology Progress Note ---
Date of Service June 29, 2024 Assessment & Plan (1) Emphysematous cystitis: Plan: 88-year-old male admitted for emphysematous cystitis and hematuria. Patient is afebrile and hemodynamically stable Labs reviewedcreatinine 1.17, WBC 9.55, hemoglobin 10.7 Urine culture with pansensitive E. coli Gabriel catheter draining appropriately, hematuria clearing Continue with broad-spectrum IV antibiotics and narrow per sensitivity data when available Continue supportive care and medical management per hospital medicine service Will arrange outpatient follow-up with our service for catheter removal and repeat imaging will sign off, please contact our service with any questions/concerns or changes in status Admission and Anticipated Discharge Date Admission Date: June 27, 2024 Subjective Patient seen and examined at bedside this morning. He is awake and sitting up in bed eating breakfast. No acute issues overnight. Denies pain. Gabriel catheter was placed yesterday. Urine is clear this morning, minimal pink tinge. Denies fever, chills, nausea or vomiting. Review of Systems Constitutional: as per Subjective / HPI Genitourinary: + as per Subjective / HPI Physical Exam Constitutional: no acute distress Respiratory: no respiratory distress and no labored breathing Gastrointestinal (Abdomen): Inspection/Auscultation: abdomen normal to inspection Musculoskeletal: Head/Neck/Chest: normocephalic Neurologic: moves all extremities and awake Psychiatric: Orientation: alert and oriented x 3 Genitourinary: Gabriel draining clear urine, minimal pink tinge Results & Data Vital Signs (Past 12 Hours) Vital Signs Temp Pulse Resp BP Pulse Ox O2 Del Method 06/29/24 08:25 69 16 154/69 H 06/29/24 06:35 36.8 C 65 16 107/64 92 Room Air PG Care Time/CCT Total # of Minutes Spent Total Time Spent with Patient: Total time spent is greater than 50% in coordination of care (as documented) at patient's floor/unit and/or counseling patient: Coding Level of Care Code 73230 SUB INP/OBS CARE 06/17MIN Diagnoses Emphysematous cystitis N30.80
--- NOTE | 2024-06-29 12:13 | Discharge Summary ---
Discharge Summary Date of Service June 29, 2024 Principal Dx & Hospital Course #1 = Principal Diagnosis (1) Acute hemorrhagic cystitis: 88yo male presenting with hematuria, dysuria, increased urinary frequency and urgency x 1 day. Patient is afebrile, HD stable. Workup thus far suggestive of emphysematous UTI with acute hemorrhagic cystitis. Patient does not frequently get UTIs. He reported no difficulty emptying his bladder, bladder scan 0cc Given Cefepime IV x 1 in ER, continued on Ceftriaxone 2gm IV daily with normalization of WBC/leukocytosis, 14.6k--> 9.5k prior to dc Urine cx w/ pansensitive ecoli Urology consulted, armas placed -- per discussion w/ urology to continue armas at sd and they will arrange follow up outpatient for repeat imaging prior to removal of catheter. Hgb 11.2--> 10.7, however was given 1L NSS and suspect some aspect of dilution. Armas w/ clearer yellow urine in tubing, no significant hematuria. Per supervising provider ok to resume ASA 81mg in AM/monitor for any issues. 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 CT imaging as above suggestive of chronic FLORENCE, on proscar at baseline Urology consulted/armas placed as above and to continue armas at sd with urology follow up (4) Hypertension: BP stable 154/69 Continued on losartan 100mg, verapamil 240mg. Torsemide was held on admission/IVF provided and can resume torsemide at dc (5) Hyperlipidemia: Chronic. Stable and remained on pravastatin Plan DVT: SCDs ordered.. Avoided chemoproph w/ hematuria but much improved/aspirin resumed at sd as above to transport at sd when friend available for ride. Urology f/u for repeat imaging/armas removal and continued PO abx at sd (pharmacy set 1 dose prior to dc) Notes For Next Care Provider Armsa to remain in place until follow up with urology and repeat imaging obtained ASA ok'd to resume 2/7 per supervising provider, monitor for any worsening hematuria/hold if occurs Home health arranged Medication Changes From Visit Cipro 750mg PO once daily to complete 7 day course Admission HPI Per Admitting Provider Jim Jones is a pleasant male with history of diabetes, hypertension, hyperlipidemia and BPH presenting with 1 day of hematuria as well as dysuria increased urinary frequency and urgency. Symptoms began yesterday afternoon. Patient noted a considerable amount of blood in the urine. He denies fever, chills, pain in the suprapubic area, back or flanks. He denies nausea, vomiting, chest pain, cough, shortness of breath. No additional complaints at this time. Patient was seen by his PCP this morning for these complaints. A UA was unable to be performed due to the presence of blood. Patient was prescribed Keflex 500 mg p.o. twice daily. A CT of the abdomen performed which revealed prostamegaly with evidence of chronic bladder outlet obstruction as well as emphysematous cystitis with air and layering debris within the urinary bladder volume. There was no renal or ureteral calculi, hydronephrosis or upper urothelial lesions. In the ER patient afebrile, mildly hypertensive otherwise stable. No complaints ER Course: Cefepime Admission Exam Per Admitting Provider General: patient resting comfortably, NAD, non-toxic in appearance, AA&O x 4 Skin: warm, dry, intact, no rashes or lesions HEENT: NC/AT, PERRL, EOMI, anicteric sclera, conjunctiva without injection, external ear normal to inspection and nontender, nares patent, moist mucus membranes, dentition intact, no oropharyngeal lesions, neck supple, trachea midline, no LAD, no thyromegaly, no JVD Heart: +S1/S2, regular, no m/r/g Lungs: equal air entry bilaterally, no rales/rhonchi/wheezes Abd: +BS, soft, NT/ND, no masses/organomegaly/ascites Ext: warm, 2+ pulses in UE/LE bilaterally, no clubbing/cyanosis or edema Neuro: nonfocal, patient AA&O x 4, speech intact, no facial droop, moving all extremities on command with equal strength 5/5 Discharge Exam General: 88yo male resting in bed, NAD, HEENT: head atraumatic, normocephalic, mmm, trachea midline Resp; even/unlabored, no significant wheezing/rales, on RA CV: RRR, no significant m/r/g, chronic lymphedema/1-2+, no calf tenderness GI: +BS, soft/NT : armas w/ yellow urine/slight pink tinge in tubing but no significant clots MSK/Neuro: nonfocal, not confused, moves all extremities, no facial droop Psych: AOx3, cooperative with exam Discharge Plan Discharge Items Patient Disposition: Home - Home Health Services Reason For Visit: UTI, HEMATURIA Discharge Diagnosis: UTI, hematuria Goals: You have been hospitalized for an acute medical problem. During your stay at [facility], we have made an effort to correct the problem that brought you to the hospital while keeping you as comfortable as possible. Medications were used to bring your condition under control and your discharge instructions will include directions for any medications you should take after leaving the hospital. Please make sure you see your Primary Care Provider as part of your follow up plan. Activity: As commented below Non-emergency contact: Primary Care Provider and Urologist Call non-emergency contact if: you have any medication questions, your symptoms worsen, your pain is not controlled, your pain is worsening, your pain is unusual for you and you have a fever Follow-up/Referrals: Jose Ramon Stovall MD [Physician] - 07/26/24 10:30 am Sharyn Cintron DO [Primary Care Provider] - 07/05/24 9:20 am Diet: Carb Consistent or DM2 and Heart Healthy Addtl Attending Provider Instructions: You have been hospitalized for urinary symptoms and urology was consulted and you have a armas catheter placed. Urine culture showed infection and grew Ecoli. You initially got IV antibiotics and are being sent home on CIPROFLOXACIN to complete the course. You received 2 days of IV antibiotics in the hospital and are being sent on a course for another 5 days to complete 7 day course. I have asked pharmacy to send one pill to take this evening until you can fill your prescription for tomorrow. Per urology, you are to continue the armas catheter at discharge and we are arranging home health to come to check in on you/catheter and urology plans to repeat imaging in 2-3 weeks prior to removal of catheter to ensure no issues. Please follow up with primary care and urology at discharge to monitor your progress or for any issues/concerns. Please return to the ER with any increased bleeding/pain/fever/discomfort or any other symptoms concerning for you. It has been a pleasure being a part of the medical team providing for you while you have been in the hospital. Take care! Pending Studies at Discharge: No Stand-Alone Forms: My [facility], Smoking Cessation Medications and DC Order Prescriptions: New ciprofloxacin HCl 750 mg tablet 750 mg PO DAILY Qty: 4 0RF Continued verapamil 240 mg tablet extended release 240 mg PO HS finasteride 5 mg tablet 5 mg PO QAM Qty: 90 3RF pravastatin 40 mg tablet 40 mg PO HS Qty: 90 3RF torsemide 10 mg tablet 5 mg PO DAILY Qty: 30 2RF Rx Instructions: Take 1/2 tablet daily losartan 100 mg tablet 100 mg PO QAM Qty: 90 1RF PreserVision AREDS [id number] capsule 1 cap PO BID acetaminophen [Tylenol Extra Strength] 500 mg tablet 1,000 mg PO ONCE PRN (Reason: pain or fever) aspirin [Dejan Low Dose Aspirin] 81 mg Tablet,Delayed Release (Dr/Ec) 81 mg PO QAM cholecalciferol (vitamin D3) [Vitamin D3] 2,000 unit Tablet 2,000 unit PO QAM Metamucil 3.4 gram/5.4 gram Powder 2 tbsp PO QAM Glucosamine Chondroitin 550-30-1 mg Capsule 1 cap PO BIDM magnesium 250 mg tablet 250 mg PO BID Patient Comments: No strength on list and spouse wasn't sure Discontinued cephalexin 500 mg capsule 500 mg PO BID 7 Days Qty: 14 0RF Admission Data Admit Date/Time: 06/27/24 19:21 Attending Provider: Lance Todd Admit Provider: Raquel Jenkins Primary Care Provider: Sharyn Cintron. Other Providers: Raquel Jenkins; Marcellus Black. Other Interventions: Discharge Summary Assessment (RN) Last Done: 06/29/24 15:11 Hospital Stay Data Consultations 06/27/24 18:58 ED Decision to Admit Stat 06/28/24 08:41 Consult Urology Routine Diagnostic Imagining Performed IMAGING PRIOR TO ADMISSION / CT abdomen pelvis wo/w con HISTORY: 88 years-old Male R31.9 - Hematuria, unspecified COMPARISON: CT abdomen and pelvis 01/16/2019 TECHNIQUE: CT abdomen and pelvis with and without IV contrast was obtained according to hematuria protocol with delayed postcontrast images. A dose lowering technique was used consistent with the principals of [place]. FINDINGS: Moderate to extensive coronary artery calcifications. Clear lung bases. Study is mildly degraded by respiratory motion. No pneumatosis or pneumoperitoneum. Unremarkable spleen with scattered calcifications. Moderately atrophic pancreas. Unremarkable adrenal glands and gallbladder. Hepatic steatosis with mild hepatomegaly. Patency of the hepatic and portal veins. Mild cortical thinning of the kidneys. Bilateral perinephric stranding. No renal or ureteral calculi or hydronephrosis. No enhancing renal mass lesion. No other urothelial lesion identified. Prostatomegaly. There is a large amount of intraluminal air within the urinary bladder with air-fluid level. Additionally, there is air circumferential throughout the urinary bladder wall extending into the urinary bladder diverticula. Wall thickening with reticulation and perivesicular stranding also noted. No discrete urinary bladder mass identified. Layering debris within the urinary bladder lumen. Atherosclerosis of the aorta without aneurysm. No lymphadenopathy. No bowel obstruction or bowel wall thickening. Colonic diverticulosis without acute diverticulitis. Normal appendix. No acute fracture. No destructive bone lesions. IMPRESSION: 1. Prostamegaly with evidence of chronic outlet obstruction. Additionally, there is emphysematous cystitis with air and layering debris within the urinary bladder lumen. 2. No renal or ureteral calculi, hydronephrosis or upper urothelial lesion. 3. Colonic diverticulosis without acute diverticulitis. 4. Additional findings as above. ACT 112: Negative or not required by law. The above report was generated using voice recognition software. It may contain grammatical, syntax or spelling errors. Electronically signed by: Coleman Rob M.D. 06/27/2024 2:22 PM Dictated: 06/27/24 140 Transcribed: 06/27/24 140 Discharge Instructions Given to Patient (Per Discharging Provider) You have been hospitalized for urinary symptoms and urology was consulted and you have a armas catheter placed. Urine culture showed infection and grew Ecoli. You initially got IV antibiotics and are being sent home on CIPROFLOXACIN to complete the course. You received 2 days of IV antibiotics in the hospital and are being sent on a course for another 5 days to complete 7 day course. I have asked pharmacy to send one pill to take this evening until you can fill your prescription for tomorrow. Per urology, you are to continue the armas catheter at discharge and we are arranging home health to come to check in on you/catheter and urology plans to repeat imaging in 2-3 weeks prior to removal of catheter to ensure no issues. Please follow up with primary care and urology at discharge to monitor your progress or for any issues/concerns. Please return to the ER with any increased bleeding/pain/fever/discomfort or any other symptoms concerning for you. It has been a pleasure being a part of the medical team providing for you while you have been in the hospital. Take care! Supervising Physician Co-Signing Physician Notes The patient was not seen by me. The chart was reviewed. Case discussed with LORRAINE Recinos. Agree with assessment and plan Total Time Total Time Spent Total Time Spent (In Minutes): 45 Coding Level of Care Code 67392 INP/OBS DISCH >30 MIN Diagnoses Acute hemorrhagic cystitis N30.01 Diabetes mellitus E11.9 BPH (benign prostatic hyperplasia) N40.0 Hypertension I10 Hyperlipidemia E78.5
== END 2024-06-29 16:01 | disposition home health service (06) ==
LOC: 3N 16:56 → ED 16:56 → SUATTDRO 19:21 → 3N 20:04